=== PATIENT | male | born 1970 ===

== ENCOUNTER 2019-06-28 13:33 | Emergency (ER) | payer MEDICAID, OTHER ==
[~2019-06-28] VITALS: Ht 180.3 cm; Wt 85.0 kg
[~2019-06-28 13:33] MED LIST: ONDA8TAB6 PO
[2019-06-28 13:37] VITALS: BP 169/90
--- NOTE | 2019-06-28 16:41 | NUR ---
Pt [facility]WO[facility]. Called. Phone would not go through because 'there are restrictions on this line'
== END 2019-06-28 16:43 | disposition home or self-care (01) ==
LOC: ER 13:34
DX: D75.1 Secondary polycythemia (principal); R10.9 Unspecified abdominal pain; M54.9 Dorsalgia, unspecified; Z53.21 Procedure and treatment not carried out due to patient leaving prior to being seen by health care provider